=== PATIENT | male | born 1960 | race African-American/Black ===

== ENCOUNTER 2018-02-18 09:30 | Emergency (ER) | payer OTHER ==
[2018-02-18 09:34] VITALS: BP 128/84; PULSE 71; TEMP 98; BMI 23.4
--- NOTE | 2018-02-18 10:11 | PDOC ---
History of Present Illness - General Chief Complaint: Back Pain Stated Complaint: BACK PAIN Time Seen by Provider: 02/18/18 09:51 History Source: Patient Exam Limitations: No Limitations - History of Present Illness Initial Comments: 02/18/18 10:17 Patient came for evaluation of low back pain that radiates to his left buttock and down the back of his left leg. works as a inside steward/stewardess at another hospital and has frequent standing and sitting on chairs that are not comfortable or organomegaly correct. has had no recent trauma or known injury. Has never had this pain before. used Aleve with some mild relief , has tried ice packs and hot soaks. Denies numbness or tingling to foot, denies any problems with bowel or bladder. No fevers Occurred: reports: other (4 days ) Pain Location: reports: back, lower extremity (left side ), neck Modifying Factors: improves with: cold therapy, immobilization, pain medication Loss of Consciousness: no loss of consciousness Associated Symptoms (Fall): denies symptoms Past History - Travel Traveled outside of the country in the last 30 days: No Close contact w/someone who was outside of country & ill: No - Past Medical History Allergies/Adverse Reactions: Allergies Allergy/AdvReac Type Severity Reaction Status Date / Time levofloxacin [From Levaquin] Allergy Verified 02/18/18 09:34 Home Medications: Ambulatory Orders Amlodipine Besylate [Norvasc -] 5 mg PO DAILY 01/21/16 Aspirin [ASA -] 81 mg PO DAILY 01/21/16 Lisinopril [Prinivil] 20 mg PO DAILY 01/21/16 Naproxen [Naprosyn -] 500 mg PO BID #20 tablet 04/30/16 Cyclobenzaprine HCl 10 mg PO Q8H PRN #14 tablet 02/18/18 Anemia: No Asthma: No Cancer: No Cardiac Disorders: No CVA: No COPD: No CHF: No Dementia: No Diabetes: No GI Disorders: No Disorders: No HTN: Yes Hypercholesterolemia: No Liver Disease: No Seizures: No Thyroid Disease: No - Surgical History Abdominal Surgery: Yes (HERNIA REPAIR) Appendectomy: No Cardiac Surgery: No Cholecystectomy: No Lung Surgery: No Neurologic Surgery: No Orthopedic Surgery: No - Suicide/Smoking/Psychosocial Hx Smoking Status: No Smoking History: Never smoked Have you smoked in the past 12 months: No Number of Cigarettes Smoked Daily: 0 Hx Alcohol Use: No Drug/Substance Use Hx: No Substance Use Type: Alcohol Hx Substance Use Treatment: No Review of Systems - Review of Systems Able to Perform ROS?: Yes Is the patient limited Kazakh proficient: Yes Constitutional: Yes: Symptoms Reported, See HPI, Malaise : No: Symptoms Reported Musculoskeletal: Yes: Symptoms Reported, See HPI, Back Pain, Joint Pain (left hip) All Other Systems: Reviewed and Negative *Physical Exam - Vital Signs Last Vital Signs Temp Pulse Resp BP Pulse Ox 98 F 71 18 128/84 100 02/18/18 09:31 02/18/18 09:31 02/18/18 09:31 02/18/18 09:31 02/18/18 09:31 - Physical Exam General Appearance: Yes: Nourished, Appropriately Dressed, Mild Distress HEENT: positive: MONE, Normal ENT Inspection, TMs Normal, Pharynx Normal Neck: positive: Supple. negative: Tender Respiratory/Chest: positive: Lungs Clear, Normal Breath Sounds Musculoskeletal: positive: Normal Inspection, Decreased Range of Motion, Muscle Spasm (mild palpable spasm noted to the paravertebral spinous muscles around lumbar spine, on the left side. Has no true bone tenderness, crepitus or step- offs to spine. Has reproduced tenderness midpoint buttock that radiates down posterior aspect of his left leg, in the sciatic distribution) Extremity: positive: Normal Capillary Refill. negative: Normal Range of Motion (ambulatory but walks with mild limp and favor to the left) Integumentary: positive: Normal Color, Dry, Warm, Pale Neurologic: positive: clinical research associate II-XII NML intact, Fully Oriented, Alert, Normal Mood/ Affect, Normal Response, Motor Strength 5/5 Progress Note - Progress Note Progress Note: Sciatica, will treat with NSAIDs and cyclobenzaprine *DC/Admit/Observation/Transfer Diagnosis at time of Disposition: Low back strain Qualifiers: Encounter type: initial encounter Qualified Code(s): S39.012A - Strain of muscle, fascia and tendon of lower back, initial encounter - Discharge Dispostion Disposition: HOME Condition at time of disposition: Stable Admit: No - Prescriptions Prescriptions: Cyclobenzaprine HCl 10 mg PO Q8H PRN #14 tablet PRN Reason: spasm - Referrals Referrals: John Bourgeois MD [Primary Care Provider] - - Patient Instructions Printed Discharge Instructions: DI for Back Pain With Sciatica Additional Instructions: Rest, no heavy lifting or exercise until pain is resolved Hot soaks to neck and low back as often as possible/hot showers or Jacuzzis No massage or therapy until spasm is gone Continue Aleve, 2 tablets every 8 hours for the next 3 days then as needed for pain and swelling Cyclobenzaprine 1-10mg every 8 hours as needed for spasm If not significant improvement within 24 hours with medication and rest regime, followup with private physician for change in medications and /or therapy. - Post Discharge Activity Forms/Work/School Notes: Back to Work
== END 2018-02-18 10:39 | disposition home or self-care (01) ==
LOC: JERFT 09:30
DX: M54.42 Lumbago with sciatica, left side (principal); S39.012A Strain of muscle, fascia and tendon of lower back, initial encounter; X50.1XXA Overexertion from prolonged static or awkward postures, initial encounter; Y93.89 Activity, other specified; Y92.238 Other place in hospital as the place of occurrence of the external cause; Y99.0 Civilian activity done for income or pay; I10 Essential (primary) hypertension; Z79.82 Long term (current) use of aspirin
CPT/HCPCS: 99281-25

== ENCOUNTER 2021-05-14 14:40 | Emergency (ER) | payer OTHER ==
[2021-05-14 14:47] VITALS: PULSE 90; TEMP 98; BMI 23.7
[2021-05-14] MEDS ORDERED: TRANEXAMIC ACID 1000 MG/10 ML VIAL IVPUSH ONE (17:15)
[2021-05-14] MEDS ORDERED: TRANEXAMIC ACID 1000 MG/10 ML VIAL IVPB ONE ×2 (17:45→18:00)
[2021-05-14] MEDS ORDERED: LIDOCAINE 1%/EPI 1:100000 (20 ML MULTI DOSE VIAL) ONE (17:58)
[2021-05-14] MEDS ORDERED: CLINDAMYCIN 600MG PREMIX IVPB 600 MG/50 ML BAG IVPB ONE (19:11)
[2021-05-14] MEDS ORDERED: LOSARTAN POTASSIUM 50 MG TABLET PO ONE (19:38)
[2021-05-14] MEDS ORDERED: LOSARTAN POTASSIUM 50 MG TABLET ONE ×2 (19:54→19:55)
[2021-05-14 20:52] VITALS: BP 132/95
== END 2021-05-14 21:00 | disposition home or self-care (01) ==
LOC: JER 14:40 → JERFT 14:40 → JER 21:00
PROC: 3E033GC Introduction of Other Therapeutic Substance into Peripheral Vein, Percutaneous Approach (ICD-10-PCS; principal; 2021-05-14)
PROC: 3E033GC Introduction of Other Therapeutic Substance into Peripheral Vein, Percutaneous Approach (ICD-10-PCS; 2021-05-14)
PROC: 3E033GC Introduction of Other Therapeutic Substance into Peripheral Vein, Percutaneous Approach (ICD-10-PCS; 2021-05-14)
DX: K06.8 Other specified disorders of gingiva and edentulous alveolar ridge (principal)
CPT/HCPCS: 99284-25

== ENCOUNTER 2023-06-08 20:29 | Emergency (ER) | payer OTHER ==
[2023-06-08 20:33] VITALS: RESP 18; BMI 24.8
[2023-06-09 00:46] VITALS: BP 136/82; PULSE 73; TEMP 97.2
== END 2023-06-09 00:46 | disposition short-term general hospital (02) ==
LOC: JERFT 20:29 → JER 20:29
DX: H10.9 Unspecified conjunctivitis (principal); B96.89 Other specified bacterial agents as the cause of diseases classified elsewhere; H54.62 Unqualified visual loss, left eye, normal vision right eye; H57.89 Other specified disorders of eye and adnexa; H02.846 Edema of left eye, unspecified eyelid
CPT/HCPCS: 99285-25